=== PATIENT | female | born 1940 | race Caucasian/White ===

== ENCOUNTER → 2017-11-10 | Outpatient (CLI) | payer OTHER ==
[~2017-11-10] MED LIST: AMLO5TAB2 PO; AMLO5TAB22 PO; ESTR1TAB PO; FURO20TA PO; HUMIBIDDM PO; HYDR-3516 PO; HYDR-3533 PO; IPRA0.03; IRON325T2 PO; ISOS30TA3 PO; MECL1CHW PO; MECL25CH PO; OMEP40CA2 PO; POTA10CA PO; PRED50TA PO; PROT40TA PO; TYLE325T PO; TYLE650T9 PO; ZOFR4TAB PO; [UNRECOGNIZED DRUG - OTHER] PO
[2017-11-10 10:52] LABS: AUTOMATED NEUTROPHIL # 4.2 TH/MM3 (1.8-7.7); BASOPHIL # 0.1 TH/MM3 (0-0.2); BASOPHIL % 0.8 % (0.0-2.0); EOSINOPHIL # 0.1 TH/MM3 (0-0.4); EOSINOPHIL % 1.8 % (0.0-4.0); HEMATOCRIT 37.2 % (35.0-46.0); HEMOGLOBIN 12.4 GM/DL (11.6-15.3); LYMPH % 23.8 % (9.0-44.0); LYMPHOCYTE # 1.6 TH/MM3 (1.0-4.8); MEAN CELL VOLUME 100.3 FL (80.0-100.0); MEAN CORPUSCULAR HEMOGLOBIN 33.6 PG (27.0-34.0); MEAN CORPUSCULAR HGB CONC 33.5 % (32.0-36.0); MONO % 9.9 % (0.0-8.0); MONOCYTE # 0.7 TH/MM3 (0-0.9); NEUT % 63.7 % (16.0-70.0); PLATELET COUNT 295 TH/MM3 (150-450); RED BLOOD COUNT 3.71 MIL/MM3 (4.00-5.30); RED CELL DISTRIBUTION WIDTH 12.6 % (11.6-17.2); WHITE BLOOD COUNT 6.6 TH/MM3 (4.0-11.0)
[2017-11-10 10:58] LABS: BILIRUBIN, URINE NEG (NEG); BLOOD, URINE NEG (NEG); GLUCOSE,URINE NEG (NEG); KETONE, URINE NEG (NEG); NITRITE,URINE NEG (NEG); SQUAMOUS EPITHELIAL CELL URINE <1 /hpf (0-5); URINE COLOR COLORLESS (YELLW/STRAW); URINE LEUKOCYTE ESTERASE NEG (NEG)
[2017-11-10 11:03] LABS: PROTHROMBIN TIME - PATIENT 10.2 SEC (9.8-11.6)
[2017-11-10 11:16] LABS: ALBUMIN 3.7 GM/DL (3.4-5.0); AST (GOT) 21 U/L (15-37); BICARBONATE 26.6 MEQ/L (21.0-32.0); BLOOD UREA NITROGEN 15 MG/DL (7-18); CHLORIDE 104 MEQ/L (98-107); CREATININE 0.86 MG/DL (0.50-1.00); GLOMERULAR FILTRATION RATE 64 ML/MIN (>89); GLUCOSE,FASTING 91 MG/DL (74-99); SODIUM (NA) 139 MEQ/L (136-145)
[2017-11-10 11:17] LABS: ALT (GPT) 23 U/L (10-53)
[2017-11-10 11:20] LABS: ALKALINE PHOSPHATASE 82 U/L (45-117); TOTAL BILIRUBIN ADULT 0.5 MG/DL (0.2-1.0); TOTAL PROTEIN 7.6 GM/DL (6.4-8.2)
--- NOTE | 2017-11-10 11:35 | RADRPT ---
EXAM DATE/TIME: 11/10/2017 11:02 [place] COMPARISON: No previous studies available for comparison. INDICATIONS : Evaluate for pneumonia,pneumothorax and communicable diseases. Pre-op abdominal surgery MEDICAL HISTORY : None. SURGICAL HISTORY : None. ENCOUNTER: Initial ACUITY: 1 day PAIN SCORE: 0/10 LOCATION: chest FINDINGS: PA and lateral views of the chest demonstrate a normal-sized cardiac silhouette with retrocardiac mid line opacity. No effusion, consolidation, or pneumothorax is identified. The bones and soft tissues d emonstrate no acute finding. Cholecystectomy clips are present. CONCLUSION: 1. No acute cardiopulmonary abnormality is identified. 2. Small to moderate-sized hiatal hernia. Kavin Celis MD on November 10, 2017 at 11:30 Board Certified Radiologist. This report was verified electronically.
--- NOTE | 2017-11-11 11:13 | EKG ---
Date Performed: 11/10/2017 Time Performed: 10:25:38 PTAGE: 77 years EKG: Sinus arrhythmia Possible anteroseptal infarct - age undetermined Low QRS voltages in preco rdial leads Abnormal ECG PREVIOUS TRACING : 11/16/2003 06.45 DOCTOR: Jonathan Varner Interpretating Date/Time 11/11/2017 11:11:28
== END ==
LOC: CPRE 09:59
PROVIDERS: ATTEND Colon & Rectal Surgery
DX: Z01.812 Encounter for preprocedural laboratory examination (principal); Z01.810 Encounter for preprocedural cardiovascular examination; Z01.811 Encounter for preprocedural respiratory examination; K62.3 Rectal prolapse; R94.31 Abnormal electrocardiogram [ECG] [EKG]
CPT/HCPCS: 36415; 71046; 80053; 81001; 85025; 85610; 85730; 86850; 86900; 86901; 93005

== ENCOUNTER 2017-11-12 11:14 | Inpatient (IN) | payer OTHER, MEDICARE ==
[~2017-11-12] VITALS: Ht 167.6 cm; Wt 79.0 kg
[~2017-11-12 11:14] MED LIST changes: -AMLO5TAB22 PO; -ESTR1TAB PO; -HUMIBIDDM PO; -HYDR-3516 PO; -HYDR-3533 PO; -IPRA0.03; -IRON325T2 PO; -MECL25CH PO; -PRED50TA PO; -PROT40TA PO; -TYLE650T9 PO; -[UNRECOGNIZED DRUG - OTHER] PO
[2017-11-12] MEDS ORDERED: HUMIBIDDM PO (11:50)
[2017-11-12] MEDS ORDERED: GLYCOPYRROLATE 1 MG/5 ML SYRINGE IV PUSH ONE (12:00)
[2017-11-12] MEDS ORDERED: DEXAMETHASONE SOD PHOS 4 MG/ML VIAL IV ONE (12:00)
[2017-11-12] MEDS ORDERED: PROPOFOL 200 MG/20 ML AMP IV ONE (12:00)
[2017-11-12] MEDS ORDERED: ePHEDrine/NS 25 MG/5 ML SYRINGE IV ONE (12:00)
[2017-11-12] MEDS ORDERED: ONDANSETRON HCL 4 MG/2 ML VIAL IV ONE (12:00)
[2017-11-12] MEDS ORDERED: ROCURONIUM INJ 50 MG/5 ML SYRINGE IV PUSH ONE (12:00)
[2017-11-12] MEDS ORDERED: ESMOLOL HCL 100 MG/10 ML VIAL IV ONE (12:00)
[2017-11-12] MEDS ORDERED: NEOSTIGMINE 5 MG/5 ML SYRINGE IV PUSH ONE (12:00)
[2017-11-12] MEDS ORDERED: LIDOCAINE HCL 1% PF 5 ML SYRINGE OTHER ONE (12:00)
[2017-11-12] MEDS ORDERED: PHENYLEPH/NS 1000 MCG/10 ML SYR IV ONE (12:00)
[2017-11-12] MEDS ORDERED: LACTATED RINGER'S 1000 ML INJ 1,000 ML IV ONE (12:00)
[2017-11-12] MEDS ORDERED: SODIUM CHLORID 0.9% 500 ML IV PRN (12:30)
[2017-11-12] MEDS ORDERED: LACTATED RINGER'S 1000 ML IV PRN (12:30)
[2017-11-12] MEDS ORDERED: POVIDONE IODINE 5% (ANTISEPSIS KIT) 4 APPLICATIONS EACH NARE PRN (12:30)
[2017-11-12] MEDS ORDERED: ALVIMOPAN 12 MG CAPSULE - On Call PO SCH (12:30)
[2017-11-12] MEDS ORDERED: CHLORHEXIDINE GLUCONATE 2 % 1 PACK (2 CLOTHS) TOPICAL PRN (12:30)
[2017-11-12] MEDS ORDERED: METOPROLOL TARTRATE 25 MG TAB PO PRN (12:30)
[2017-11-12] MEDS ORDERED: METRONIDAZOLE 500 MG/100 ML ISONTONIC SOLN IV SCH (12:45)
[2017-11-12] MEDS ORDERED: ceFAZolin 1,000 MG/NS 100 ML IV SCH ×2 (12:45)
[2017-11-12] MEDS ORDERED: MIDAZOLAM HCL 2 MG/2 ML VIAL ONE (12:51)
[2017-11-12] MEDS ORDERED: FAMOTIDINE 20 MG/2 ML VIAL ONE (12:51)
[2017-11-12] MEDS ORDERED: ACETAMINOPHEN 1000 MG/100 ML 100 ML IV ONE (12:51)
[2017-11-12] MEDS ORDERED: DEXT 5%-NACL 0.9% 1000 ML INJ 1,000 ML IV SCH (13:00)
[2017-11-12] MEDS ORDERED: LIDOCAINE 0.5%/EPINEPHrine 1:200,000 SOLN 50 ML VIAL ONE (13:09)
[2017-11-12] MEDS ORDERED: HYDROmorphone HCL PF 1 MG/ML VIAL ONE (15:25)
[2017-11-12] MEDS ORDERED: SODIUM CHLORIDE 0.9% FLUSH 10 ML FLUSH IV FLUSH PRN (15:30)
[2017-11-12] MEDS ORDERED: POTASSIUM CHLOR 20 MEQ PREMIX 100 ML IV PRN (15:30)
[2017-11-12] MEDS ORDERED: BENZOCAINE 6 MG/MENTHOL 10 MG LOZENGE BUCCAL PRN (15:30)
[2017-11-12] MEDS ORDERED: Post-op Orders (for Pharmacy) XX ONE (15:30)
[2017-11-12] MEDS ORDERED: ENALAPRILAT 1.25 MG/ML VIAL IV PUSH PRN (15:30)
[2017-11-12] MEDS ORDERED: POTASSIUM CHLOR 40 MEQ PREMIX 100 ML IV PRN (15:30)
[2017-11-12] MEDS ORDERED: DO NOT ADM ANY ANTICOAGULANT DRUGS PRN (15:30)
[2017-11-12] MEDS ORDERED: NALOXONE HCL 0.4 MG/ML AMP IV PUSH PRN (15:30)
[2017-11-12] MEDS ORDERED: *morphine SULFATE 10 MG/ML PERIprocedure ONLY ONE ×3 (15:34→16:02)
[2017-11-12] MEDS: MORPHINE SULFATE 30 MG/30 ML PCA IV SCH (15:45)
[2017-11-12] MEDS: D5-LR + KCL 20 MEQ INJ 1,000 ML IV SCH (15:45)
[2017-11-12 16:44] LABS: AUTOMATED NEUTROPHIL # 17.3 TH/MM3 (1.8-7.7); BASOPHIL % 0.2 % (0.0-2.0); HEMATOCRIT 34.5 % (35.0-46.0); HEMOGLOBIN 11.5 GM/DL (11.6-15.3); LYMPH % 6.6 % (9.0-44.0); LYMPHOCYTE # 1.3 TH/MM3 (1.0-4.8); MEAN CELL VOLUME 100.2 FL (80.0-100.0); MEAN CORPUSCULAR HEMOGLOBIN 33.3 PG (27.0-34.0); MEAN CORPUSCULAR HGB CONC 33.2 % (32.0-36.0); MEAN PLATELET VOLUME 6.8 FL (7.0-11.0); MONO % 4.2 % (0.0-8.0); MONOCYTE # 0.8 TH/MM3 (0-0.9); PLATELET COUNT 299 TH/MM3 (150-450); RED BLOOD COUNT 3.44 MIL/MM3 (4.00-5.30); RED CELL DISTRIBUTION WIDTH 12.9 % (11.6-17.2); WHITE BLOOD COUNT 19.4 TH/MM3 (4.0-11.0)
[2017-11-12 17:10] LABS: BICARBONATE 22.8 MEQ/L (21.0-32.0); CALCIUM 8.1 MG/DL (8.5-10.1); CREATININE 0.63 MG/DL (0.50-1.00)
[2017-11-12] MEDS ORDERED: MECLIZINE HCL 25 MG TAB PO PRN (19:30)
[2017-11-12 20:20] VITALS: BP 129/58; PULSE 93; PULSE 96; RESP 22; TEMP 98; O2SAT 93
[2017-11-12 21:00] VITALS: PULSE 94
[2017-11-12] MEDS: SODIUM CHLORIDE 0.9% FLUSH 10 ML FLUSH IV FLUSH SCH (21:00)
[2017-11-12] MEDS: FUROSEMIDE 20 MG/2 ML VIAL IV PUSH SCH (21:34)
[2017-11-12] MEDS: METOCLOPRAMIDE HCL 10 MG/2 ML VIAL IVS SCH (21:35)
[2017-11-12 22:00] VITALS: PULSE 96
[2017-11-12] MEDS: PCA - TOTAL MG MORPHINE DELIVERED PER SHIFT SCH (22:41)
[2017-11-12 23:10] VITALS: PULSE 102
[2017-11-12 23:50] VITALS: BP 141/65; PULSE 116; RESP 19; TEMP 98.3; O2SAT 95
[2017-11-13] VITALS (21 sets, daily range): BP systolic 136–153; BP diastolic 62–74; PULSE 92–115; RESP 18–19; TEMP 97.5–98.7; O2SAT 93–95
[2017-11-13] MEDS: METOCLOPRAMIDE HCL 10 MG/2 ML VIAL IVS SCH ×5 (00:11→23:22)
[2017-11-13] MEDS: metroNIDAZOLE 500 MG INJ 100 ML IV SCH ×3 (00:12→14:14)
[2017-11-13] MEDS: ONDANSETRON HCL 4 MG/2 ML VIAL IV PUSH PRN ×2 (00:26→19:51)
[2017-11-13] MEDS: MORPHINE SULFATE 30 MG/30 ML PCA IV SCH (02:48)
[2017-11-13 05:03] LABS: AUTOMATED NEUTROPHIL # 11.9 TH/MM3 (1.8-7.7); BASOPHIL % 0.1 % (0.0-2.0); HEMATOCRIT 32.2 % (35.0-46.0); HEMOGLOBIN 10.9 GM/DL (11.6-15.3); LYMPHOCYTE # 0.7 TH/MM3 (1.0-4.8); MEAN CELL VOLUME 100.1 FL (80.0-100.0); MEAN CORPUSCULAR HEMOGLOBIN 33.9 PG (27.0-34.0); MEAN CORPUSCULAR HGB CONC 33.9 % (32.0-36.0); MEAN PLATELET VOLUME 7.2 FL (7.0-11.0); MONO % 12.7 % (0.0-8.0); MONOCYTE # 1.8 TH/MM3 (0-0.9); NEUT % 82.2 % (16.0-70.0); PLATELET COUNT 363 TH/MM3 (150-450); RED BLOOD COUNT 3.22 MIL/MM3 (4.00-5.30); RED CELL DISTRIBUTION WIDTH 12.9 % (11.6-17.2); WHITE BLOOD COUNT 14.5 TH/MM3 (4.0-11.0)
[2017-11-13] MEDS: D5-LR + KCL 20 MEQ INJ 1,000 ML IV SCH ×4 (05:09→18:26)
[2017-11-13 05:40] LABS: BICARBONATE 24.8 MEQ/L (21.0-32.0); CALCIUM 8.4 MG/DL (8.5-10.1); CREATININE 0.91 MG/DL (0.50-1.00)
[2017-11-13] MEDS: PCA - TOTAL MG MORPHINE DELIVERED PER SHIFT SCH ×2 (06:00→14:00)
[2017-11-13] MEDS: amLODIPine BESYLATE 5 MG TAB PO SCH (08:55)
[2017-11-13] MEDS: POTASSIUM CHLORIDE 10 MEQ CAP PO SCH (08:55)
[2017-11-13] MEDS: FUROSEMIDE 20 MG/2 ML VIAL IV PUSH SCH ×2 (08:55→19:50)
[2017-11-13] MEDS: ISOSORBIDE MONONITRATE 30 MG TAB PO SCH (08:55)
[2017-11-13] MEDS: PANTOPRAZOLE SODIUM 40 MG VIAL IVP SCH (08:55)
[2017-11-13] MEDS: SODIUM CHLORIDE 0.9% FLUSH 10 ML FLUSH IV FLUSH SCH ×2 (08:56→19:52)
[2017-11-13] MEDS ORDERED: ALVIMOPAN 12 MG CAPSULE - Post-op dosing PO SCH (09:00)
--- NOTE | 2017-11-13 15:52 | HHI.PR ---
Subjective Remarks Some nausea earlier. No BMs. Pain stable. 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 Date Time Temp Pulse Resp B/P (MAP) Pulse Ox O2 Delivery O2 Flow Rate FiO2 11/13/17 15:44 98.4 115 18 153/74 (100) 94 11/13/17 14:00 97 11/13/17 14:00 19 11/13/17 13:00 103 11/13/17 12:00 94 11/13/17 11:17 97.7 103 18 144/64 (90) 93 11/13/17 11:00 103 11/13/17 10:00 92 11/13/17 09:00 108 11/13/17 08:42 94 Nasal Cannula 2.00 11/13/17 08:00 108 11/13/17 07:31 95 Nasal Cannula 2.00 11/13/17 07:30 97.9 101 19 138/64 (88) 95 11/13/17 07:00 103 11/13/17 06:28 100 11/13/17 06:00 21 11/13/17 05:23 100 11/13/17 04:23 107 11/13/17 03:11 98.7 107 18 136/62 (86) 93 11/13/17 03:11 100 11/13/17 02:48 20 11/13/17 02:32 103 11/13/17 01:14 104 11/13/17 00:00 104 11/12/17 23:50 98.3 116 19 141/65 (90) 95 11/12/17 23:10 102 11/12/17 22:41 19 11/12/17 22:00 96 11/12/17 21:00 94 11/12/17 20:20 93 11/12/17 20:20 98.0 96 22 129/58 (81) 93 18 20:00 95 10 114/58 (76) 91 Nasal Cannula 4 11/12/17 19:00 97 10 118/58 (78) 93 Nasal Cannula 4 11/12/17 18:15 97 10 119/59 (79) 92 11/12/17 18:00 116 13 134/59 (84) 93 18 17:45 96 9 112/54 (73) 93 11/12/17 17:30 99 12 119/56 (77) 93 11/12/17 17:15 99 12 119/56 (77) 93 11/12/17 17:00 103 12 133/60 (84) 92 11/12/17 16:45 96 10 133/60 (84) 91 11/12/17 16:30 93 8 134/60 (84) 92 11/12/17 16:15 99 18 138/62 (87) 97 11/12/17 16:00 87 12 131/60 (83) 97 I/O 11/12/17 11/12/17 11/12/17 11/13/17 11/13/17 11/13/17 07:00 15:00 23:00 07:00 15:00 23:00 Intake Total 1608 ml 640 ml Output Total 1010 ml 550 ml Balance 598 ml 90 ml Intake Oral 540 ml IV Total 1608 ml 100 ml Output Urine Total 750 ml 500 ml Drainage Total 160 ml 50 ml Estimated Blood Loss 100 ml # Bowel Movements 0 Result Diagram: 11/13/17 0413 11/13/17 0413 Objective Remarks VS-S Abd: Flat,dressing dry Labs and I&Os-OK Assessment and Plan Assessment and Plan Stable POD#! 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 Ambulate. Decrease IVs. FLD tonight. Regular diet in AM. Kavin Holm MD Nov 13, 2017 15:52
[2017-11-13] MEDS: ACETAMINOPHEN/HYDROcodone 325 MG/5 MG TAB PO PRN ×2 (16:06→21:05)
[2017-11-13] MEDS: ALVIMOPAN 12 MG CAPSULE PO SCH ×2 (17:01→19:52)
[2017-11-13] MEDS ORDERED: ALVIMOPAN 12 MG CAPSULE PO SCH (21:00)
[2017-11-13] MEDS: ZOLPIDEM TARTRATE 5 MG TAB PO PRN (23:50)
[2017-11-14 00:11] VITALS: BP 147/63; PULSE 110; RESP 19; TEMP 98.3; O2SAT 93
[2017-11-14] MEDS: D5-LR + KCL 20 MEQ INJ 1,000 ML IV SCH ×4 (02:26→22:41)
[2017-11-14 05:20] VITALS: BP 135/65; PULSE 118; RESP 21; TEMP 97.6; O2SAT 93
[2017-11-14] MEDS: METOCLOPRAMIDE HCL 10 MG/2 ML VIAL IVS SCH ×4 (06:05→22:40)
[2017-11-14] MEDS: ACETAMINOPHEN/HYDROcodone 325 MG/5 MG TAB PO PRN ×4 (06:09→22:40)
[2017-11-14 06:49] LABS: AUTOMATED NEUTROPHIL # 10.2 TH/MM3 (1.8-7.7); BASOPHIL % 0.1 % (0.0-2.0); HEMATOCRIT 29.6 % (35.0-46.0); HEMOGLOBIN 10.1 GM/DL (11.6-15.3); LYMPH % 11.2 % (9.0-44.0); LYMPHOCYTE # 1.5 TH/MM3 (1.0-4.8); MEAN CELL VOLUME 99.4 FL (80.0-100.0); MEAN CORPUSCULAR HGB CONC 34.2 % (32.0-36.0); MEAN PLATELET VOLUME 7.3 FL (7.0-11.0); MONOCYTE # 1.7 TH/MM3 (0-0.9); NEUT % 75.7 % (16.0-70.0); PLATELET COUNT 275 TH/MM3 (150-450); RED BLOOD COUNT 2.98 MIL/MM3 (4.00-5.30); RED CELL DISTRIBUTION WIDTH 12.8 % (11.6-17.2); WHITE BLOOD COUNT 13.5 TH/MM3 (4.0-11.0)
[2017-11-14 07:04] LABS: BICARBONATE 31.3 MEQ/L (21.0-32.0); CALCIUM 8.2 MG/DL (8.5-10.1); CREATININE 0.59 MG/DL (0.50-1.00)
[2017-11-14 08:00] VITALS: BP 145/67; PULSE 116; RESP 21; TEMP 97.7; O2SAT 94
[2017-11-14] MEDS: SODIUM CHLORIDE 0.9% FLUSH 10 ML FLUSH IV FLUSH SCH ×2 (09:00→20:30)
[2017-11-14] MEDS: ALVIMOPAN 12 MG CAPSULE PO SCH ×2 (09:31→20:23)
[2017-11-14] MEDS: POTASSIUM CHLORIDE 10 MEQ CAP PO SCH (09:31)
[2017-11-14] MEDS: ISOSORBIDE MONONITRATE 30 MG TAB PO SCH (09:31)
[2017-11-14] MEDS: FUROSEMIDE 20 MG/2 ML VIAL IV PUSH SCH ×2 (09:32→20:23)
[2017-11-14] MEDS: PANTOPRAZOLE SODIUM 40 MG VIAL IVP SCH (09:32)
[2017-11-14] MEDS: amLODIPine BESYLATE 5 MG TAB PO SCH (09:32)
--- NOTE | 2017-11-14 10:11 | HHI.PR ---
Subjective Remarks No N or V, but not much appetite. No BMs. Pain stable. Not walking in halls. Objective Vital Signs Date Time Temp Pulse Resp B/P (MAP) Pulse Ox O2 Delivery O2 Flow Rate FiO2 11/14/17 08:00 97.7 116 21 145/67 (93) 94 11/14/17 05:20 97.6 118 21 135/65 (88) 93 11/14/17 00:11 98.3 110 19 147/63 (91) 93 11/13/17 21:03 97.5 112 18 143/65 (91) 94 11/13/17 15:44 98.4 115 18 153/74 (100) 94 11/13/17 15:00 114 11/13/17 14:00 97 11/13/17 14:00 19 11/13/17 13:00 103 11/13/17 12:00 94 11/13/17 11:17 97.7 103 18 144/64 (90) 93 11/13/17 11:00 103 I/O 11/13/17 11/13/17 11/13/17 11/14/17 11/14/17 11/14/17 07:00 15:00 23:00 07:00 15:00 23:00 Intake Total 640 ml 920 ml Output Total 550 ml 495 ml 2225 ml Balance 90 ml 425 ml -2225 ml Intake Oral 540 ml 920 ml IV Total 100 ml Output Urine Total 500 ml 450 ml 2200 ml Drainage Total 50 ml 45 ml 25 ml # Bowel Movements 0 Result Diagram: 11/14/17 0511 11/14/17 0511 Objective Remarks VS-S Abd: Flat,dressing removed. Wound clean Labs and I&Os-OK Medications and IVs Assessment and Plan Assessment and Plan Stable POD#2 Plan: Regular diet. Ambulate. Replace andre if pt cannot void. Kavin Holm MD Nov 14, 2017 10:11
[2017-11-14 12:00] VITALS: BP 136/68; PULSE 108; RESP 20; TEMP 96.4; O2SAT 95
--- NOTE | 2017-11-14 14:14 | MP ---
cc: MD SWATHI,DANY BUSH M.D. MACIEJ CHUNGEL DATE OF SURGERY: 11/12/2017. PREOPERATIVE DIAGNOSIS: Full rectal prolapse POSTOPERATIVE DIAGNOSIS: Full rectal prolapse. OPERATIVE PROCEDURE PERFORMED: Abdominal proctopexy SURGEON: Kavin Holm M.D. BODY MAKE UP ARTIST: Ronaldo Vega MD. ANESTHESIA: General endotracheal anesthesia. ESTIMATED BLOOD LOSS: 100 cc. OPERATIVE FINDINGS: This patient had a full rectal prolapse and wished repair. This has been going on for several months and has been painful and causing her bowel problems. For this reason, abdominal proctopexy was recommended. At surgery, she had had a previous hysterectomy and cholecystectomy and appendectomy and there were some adhesions of omentum down to the bladder but otherwise the pelvis was fairly free of adhesions. She did have a long redundant sigmoid loop that was stuck down in the pelvis but was easily raised up out of the pelvis. Sigmoid resection was not done as part of this procedure. A rectopexy was done with 2-0 Prolene sutures, three on each side of the bowel to the upper sacrum. DESCRIPTION OF THE PROCEDURE IN DETAIL / OPERATIVE TECHNIQUE: The patient was placed on the table in the supine position. After adequate general endotracheal anesthesia, her legs were placed in the perineolithotomy position. The abdomen and perineum were prepped and draped in the usual manner. A midline incision was made from the pubis to just above the umbilicus in her previous midline incision. This was taken down through the linea alba and the peritoneal cavity was entered with above-mentioned findings. The adhesions from the omentum were taken down from the left colic gutter and the bladder area with electrocautery. Next the bowel was pulled up in the upper abdomen and the redundant sigmoid was identified. The sigmoid was mobilized along its peritoneal reflection on the left side and the left ovarian vessels and left ureter were identified easily and protected at all times. The retrorectal space was entered and dissection was carried down to the coccyx posteriorly in the avascular plane with electrocautery. Next the lateral pelvic peritoneum was incised widely and it was taken down to the cul-de-sac and the adhesions on either side of the cul-de-sac were incised but the cul-de-sac was not entered anteriorly. Next the sutures were placed, placing three on each side in each lateral stalk and then down into the central portion of the upper sacrum through the periosteum. Once each suture was placed, three on each side, the sutures were then tied down tightly from below upward fully tying all three sutures on each side. It should be mentioned that hemostasis was maintained throughout with electrocautery and there was some generalized oozing in the pelvis and this was irrigated thoroughly with saline solution and aspirated dry. Because of the oozing, a drain was placed through the right abdominal wall through a separate stab wound and placed in the retrorectal space. Next the bowels were replaced in the abdominal cavity in a cnc machine operator manner and the omentum was placed over the bowels and the abdominal cavity was closed in a single layer using a double-stranded #1 PDS closing the midline incision. Next the subcutaneous tissue was irrigated thoroughly with saline solution, aspirated dry and skin was closed with running 3-0 Vicryl subcuticular suture and a dressing was applied. Sponge, needle and a counts were reported as correct. The estimated blood loss was 100 mL. The patient tolerated the procedure well and left the operating room in good condition. MD RUTH ANN Prado/ELEUTERIO /3:29 PM /1:57 PM
[2017-11-14 16:00] VITALS: BP 162/81; PULSE 117; RESP 20; TEMP 98.2; O2SAT 95
[2017-11-14 20:00] VITALS: BP 138/93; PULSE 115; RESP 18; TEMP 97.5; O2SAT 94
[2017-11-14] MEDS: ZOLPIDEM TARTRATE 5 MG TAB PO PRN (20:27)
[2017-11-15 00:42] VITALS: BP 141/77; PULSE 115; RESP 17; TEMP 98.4; O2SAT 94
[2017-11-15] MEDS: METOCLOPRAMIDE HCL 10 MG/2 ML VIAL IVS SCH (05:09)
[2017-11-15 08:00] VITALS: BP 155/87; PULSE 115; RESP 18; TEMP 98.8; O2SAT 95
[2017-11-15] MEDS: ISOSORBIDE MONONITRATE 30 MG TAB PO SCH (08:02)
[2017-11-15] MEDS: FUROSEMIDE 20 MG/2 ML VIAL IV PUSH SCH (08:02)
[2017-11-15] MEDS: PANTOPRAZOLE SODIUM 40 MG VIAL IVP SCH (08:02)
[2017-11-15] MEDS: POTASSIUM CHLORIDE 10 MEQ CAP PO SCH (08:03)
[2017-11-15] MEDS: ACETAMINOPHEN/HYDROcodone 325 MG/5 MG TAB PO PRN (08:03)
[2017-11-15] MEDS: SODIUM CHLORIDE 0.9% FLUSH 10 ML FLUSH IV FLUSH SCH (08:03)
[2017-11-15] MEDS: amLODIPine BESYLATE 5 MG TAB PO SCH (08:03)
[2017-11-15] MEDS: ALVIMOPAN 12 MG CAPSULE PO SCH (08:03)
--- NOTE | 2017-11-15 10:26 | HHI.DCPOC ---
Discharge Care Plan Diagnosis: (1) Rectal prolapse Your Health Problems Are: Incision/Drains Appetite Changes Irregular Bowel Function Exercise Tolerance Goals to Promote Your Health * To prevent worsening of your condition and complications * To maintain your health at the optimal level Directions to Meet Your Goals Take your medications as prescribed Follow your dietary instruction Follow activity as directed Keep your appointments as scheduled Take your immunizations and boosters as scheduled If your symptoms worsen call your PCP, if no PCP go to Urgent Care Center or Emergency Room Smoking is Dangerous to Your Health. Avoid second hand smoke Call the 24-hour hour crisis hotline for domestic abuse at Kavin Holm MD Nov 15, 2017 10:26
[2017-11-15 11:30] VITALS: BP 130/58; PULSE 97; RESP 17; TEMP 97.7; O2SAT 92
== END 2017-11-15 11:29 | disposition home or self-care (01) | DRG 331 ==
LOC: HSDI 11:14 → HCPC 20:08 → N07B 11-13 18:50
PROVIDERS: ADMIT Colon & Rectal Surgery; ATTEND Colon & Rectal Surgery
PROC: 0DSP0ZZ Reposition Rectum, Open Approach (ICD-10-PCS; principal; 2017-11-12 13:40)
DX: K62.3 Rectal prolapse (principal); I34.0 Nonrheumatic mitral (valve) insufficiency; I10 Essential (primary) hypertension; K66.0 Peritoneal adhesions (postprocedural) (postinfection); K21.9 Gastro-esophageal reflux disease without esophagitis; Z85.42 Personal history of malignant neoplasm of other parts of uterus; Z90.710 Acquired absence of both cervix and uterus
CPT/HCPCS: 36415; 71046; 80048; 80053; 81001; 85025; 85610; 85730; 86850; 86900; 86901; 93005; 94150; C9113; J0131; J0690; J1100; J1170; J1940; J2250; J2270; J2370; J2405; J2710; J2765; J3010; J3480; J7120